=== PATIENT | female | born 1955 | race Caucasian/White ===

== ENCOUNTER 2024-01-31 18:41 | Outpatient (CLI) | payer MEDICARE, BC, SELFPAY ==
--- NOTE | 2024-01-31 19:00 | MR_ITS ---
[address] [address] Phone:?[phone] Fax:?[phone] Referring Physician Information: Christiano Silva M.D. [id number] [facility] [address] Phone:?[phone] Fax:?[phone] Patient:Jayleen Fleming D.O.B:?1955 Sex:?Female Phone:?[phone] [facility] MRN:?[id number] Exam Date:?01/31/2024 EXAM: MRI of the LEFT HIP, without contrast CLINICAL HISTORY: Pain in left hip. Concern for left abductor tendon rupture. COMPARISONS: Plain radiographs 11/04/2023. TECHNICAL: MR sequences of the left hip: Axials: PD FS Axial oblique: PD Coronals: PD, T2 Coronal pelvis: T1 and STIR Sagittals: PD and T2 CONTRAST: None SEDATION: None FINDINGS: Pelvis osseous structures: Sacrum: No fracture or destructive osseous lesion is seen of the imaged portions of the sacrum. Sacroiliac joints: Mild arthritic changes. Pubic rami: Unremarkable. Symphysis pubis: Moderate chronic arthritic changes. No evidence of acute osteitis pubis. Labrum: Suspected attenuation, fraying, and ill-defined tearing of the anterosuperior left hip labrum although it must be noted that the labrum is not well evaluated because of nonarthrogram technique and suboptimal [id number]. Hip joint: Physiologic amount of joint fluid. There is a 1.2 cm in AP dimension by 0.7 cm in transverse dimension region of near full-thickness chondral loss within the superior aspect of the left hip joint best seen on coronal series 2 images 16 through 18 although it must be noted that the cartilage is not optimally evaluated because of nonarthrogram technique. No subchondral cystic change/subchondral edema-like signal. Proximal femur: No fracture, osseous stress injury, avascular necrosis, or suspicious bone marrow signal abnormality is seen. Acetabulum: No subchondral cysts, periacetabular ossicles or marrow edema. Coverage: Left lateral center edge (CE) angle measures approximately 30? correcting for coronal pelvic tilt, midline coronal series 5 image 14. Ligamentum teres: Unremarkable. Myotendinous structures: Gluteus abductors: There are complete full-thickness tearing of the left gluteus minimus tendon insertion and extensive full-thickness tearing of the anterior portion of the left gluteus medius tendon insertion. There is marked left greater trochanteric bursitis. Rectus abdominis-adductor longus aponeurosis, adductors, and rectus abdominis: Unremarkable. Hamstrings: There is partial tear of the left conjoined hamstring tendon with approximately 8 mm of retraction of torn tendon fibers from the ischial tuberosity attachment. Flexors: The iliopsoas and rectus femoris tendons are intact. Quadratus femoris muscle: Unremarkable. Piriformis muscle: There is marked atrophy of the right piriformis muscle. The left piriformis muscle is intact. Gluteal aponeurotic fascia and IT band: Unremarkable. Pelvic soft tissues: There is colonic diverticulosis without evidence of diverticulitis. 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 IMPRESSION: 1. Complete full-thickness tearing of the left gluteus minimus tendon insertion and extensive full-thickness tearing of the anterior portion of the left gluteus medius tendon insertion. Marked left greater trochanteric bursitis. 2. 1.2 x 0.7 cm region of near full-thickness chondral loss within the superior aspect of the left hip joint although it must be noted that the cartilage is not optimally evaluated because of nonarthrogram technique. No subchondral cystic change/subchondral edema-like signal. Suspected attenuation, fraying, and ill- defined tearing of the anterosuperior portion of the left hip labrum although it must be noted that the labrum is not well evaluated because of nonarthrogram technique and suboptimal [id number]. 3. Partial tear of the left conjoined hamstring tendon with approximately 8 mm of retraction of torn tendon fibers from the ischial tuberosity attachment, of uncertain clinical significance. 4. Marked atrophy of the right piriformis muscle. Surgical changes status post right hip arthroplasty are not optimally evaluated by this dedicated MRI of the left hip. 5. Colonic diverticulosis without evidence of diverticulitis. 6. No fracture or osseous stress injury of the left hip. RCB Electronically signed on 02/03/2024 2:17:00 PM by Brigido Strange M.D.
== END 2024-01-31 18:42 | disposition home or self-care (01) ==
LOC: MRI 18:42
PROVIDERS: PCP Family Medicine; Visit Provider Orthopaedic Surgery Sports Medicine
DX: M25.552 Pain in left hip (principal); S76.012A Strain of muscle, fascia and tendon of left hip, initial encounter; K57.92 Diverticulitis of intestine, part unspecified, without perforation or abscess without bleeding
CPT/HCPCS: 73721